=== PATIENT | female | born 1970 | race Caucasian/White ===

== ENCOUNTER 2016-08-18 20:30 | Emergency (ER) | payer SELFPAY ==
[~2016-08-18] VITALS: Ht 157.5 cm; Wt 65.2 kg
[~2016-08-18 20:30] MED LIST: PENVK500 PO
[2016-08-18 20:35] VITALS: BP 148/95; PULSE 98; RESP 20; TEMP 98.8
[2016-08-18 22:35] VITALS: BP 146/90; PULSE 85; RESP 18; O2SAT 97
--- NOTE | 2016-08-18 23:04 | PD ---
HPI Chief Complaint: Pain: Acute or Chronic Time Seen by Provider: 22:52 Travel History International Travel<30 days: No Contact w/Intl Traveler<30days: No Traveled to known affect area: No History of Present Illness HPI The patient is a 45-year-old female that complains of pain on her left back for 3 days. The pain is sharp. She states it is not under her breast, apparently she described it initially as being under her left breast. When she lifts her arm up or sits forward the pain hurts. She denies any trauma. She does have a history of cocaine abuse. She denies any fever or cough. She smokes almost a pack a day. PFSH Past Medical History Bipolar Disorder: Yes Anxiety: Yes Depression: Yes High Cholesterol: Yes Diminished Hearing: No Fibromyalgia: Yes GERD: No Genitourinary: No Hiatal Hernia: No Inguinal Hernia: Yes Kidney Stones: No Musculoskeletal: Yes (DJD) Psychiatric: Yes Respiratory: No Immunizations Current: No Renal Failure: No Schizophrenia: Yes (POSSIBLE ) Seizures: Yes (X1 IN 2001) Ulcer: No Tetanus Vaccination: < 5 Years Influenza Vaccination: No ?: Not Menopausal: Yes : 4 Para: 2 Miscarriage: 2 : 0 Past Surgical History Abdominal Surgery: Yes (LAPROSCOPY X2 FOR ENDOMETRIOSIS) Cardiac Surgery: No Genitourinary Surgery: No Gynecologic Surgery: Yes (ENDOMETRIOSIS X 3; PROLAPS UTERUS REPAIR) Hysterectomy: Yes Thoracic Surgery: No Other Surgery: Yes (BILAT INGUINAL HERNIA REPAIR 04) Social History Alcohol Use: Yes (occ) Tobacco Use: Yes (07/21 ppd) Substance Use: Yes (CRACK,METH, dilaudid) Allergies-Medications (Allergen,Severity, Reaction): Coded Allergies: No Known Allergies (Verified , 08/18/16) Reported Meds & Prescriptions Reported Meds & Active Scripts Active No Active Prescriptions or Reported Medications Review of Systems Except as stated in HPI: all other systems reviewed are Neg Physical Exam Narrative GENERAL: The patient is alert, oriented 3 and slight apparent distress with her back pain. Her vital signs show blood pressure 148/95 but are otherwise normal. The heart rate is 98. SKIN: Warm and dry. HEAD: Atraumatic. Normocephalic. EYES: Pupils equal and round. No scleral icterus. No injection or drainage. ENT: No nasal bleeding or discharge. Mucous membranes pink and moist. NECK: Trachea midline. No JVD. CARDIOVASCULAR: Regular rate and rhythm. No murmur appreciated. RESPIRATORY: No accessory muscle use. Clear to auscultation. Breath sounds equal bilaterally. The patient states I cannot reproduce pain by pressing on her back when I press slightly to the left of the thoracic spine at around T8 to T10 she jumps up but then states it tickled and made it hurt. When I pressed below and behind the left breast it does reproduce her pain somewhat. GASTROINTESTINAL: Abdomen soft, non-tender, nondistended. Hepatic and splenic margins not palpable. MUSCULOSKELETAL: No obvious deformities. No clubbing. No cyanosis. No edema. NEUROLOGICAL: Awake and alert. No obvious cranial nerve deficits. Motor grossly within normal limits. Normal speech. PSYCHIATRIC: Appropriate mood and affect; insight and judgment normal. Data Data Last Documented VS Vital Signs Date Time Temp Pulse Resp B/P Pulse Ox O2 Delivery O2 Flow Rate FiO2 08/18/16 22:35 85 18 146/90 97 Room Air 08/18/16 20:35 98.8 Orders Chest, Pa & Lat (08/18/16 22:59) Ketorolac Inj (Toradol Inj) (08/18/16 23:15) D-Dimer (08/18/16 23:47) Iv Access Insert/Monitor (08/19/16 00:34) Ecg Monitoring (08/19/16 00:34) Oximetry (08/19/16 00:34) Oxygen Administration (08/19/16 00:34) Ct Pulmonary Angiogram (08/19/16 00:34) Sodium Chloride 0.9% Flush (Ns Flush) (08/19/16 00:45) Complete Blood Count With Diff (08/19/16 00:35) Basic Metabolic Panel (Bmp) (08/19/16 00:35) Urinalysis - C+S If Indicated (08/19/16 00:35) Labs Laboratory Tests Test 08/18/16 23:25 D-Dimer Quantitative (PE/DVT) 1.04 MG/L FEU [facility] Medical Decision Making Medical Screen Exam Complete: Yes Emergency Medical Condition: Yes Medical Record Reviewed: Yes Interpretation(s) The chest x-ray shows no acute cardiopulmonary disease. The d-dimer is 1.04. Differential Diagnosis Latissimus dorsi insertion pain, fractured rib, pneumothoraxhighly unlikely, pleurisy, pulmonary emboluslow probability Narrative Course Patient appears to have pleuritic chest pain. It is in front and back and does not follow the course of muscles and appears to be inside of the ribs and musculature. The patient wants to rule out a pulmonary embolus and we will do a d-dimer first. The patient does apparently have low probability for pulmonary embolus. Unfortunately, the d-dimer is slightly elevated and we will have to do a CT pulmonary angiogram. The patient has business dealings later on today and cannot stay for this tonight, she will sign out AGAINST MEDICAL ADVICE and return later. Procedures EKG Prior to Arrival: No Diagnosis Primary Impression: Chest pain of uncertain etiology Additional Instructions: As we discussed, pulmonary embolus as possible and he will have to sign out AMA tonight. When you return, we will want to do a CT pulmonary angiogram. This should adequately rule out a pulmonary embolus. Scripts No Active Prescriptions or Reported Meds Disposition: 07 AGAINST MEDICAL ADVICE Condition: Stable Edy Garibay MD Aug 18, 2016 23:04
[2016-08-18] MEDS ORDERED: KETOROLAC TROMETHAMINE 60 MG/2 ML (IM) VIAL IM ONE (23:15)
--- NOTE | 2016-08-18 23:35 | RADHPO ---
EXAM DATE/TIME: 08/18/2016 23:14 [facility] COMPARISON: No previous studies available for comparison. INDICATIONS : Patient states left side chest pain. MEDICAL HISTORY : Hypercholesterolemia. SURGICAL HISTORY : None. ENCOUNTER: Initial ACUITY: 3 days PAIN SCORE: 9/10 LOCATION: Left chest FINDINGS: PA and lateral views of the chest demonstrate the lungs to be symmetrically aerated without evidence of mass, infiltrate or effusion. The cardiomediastinal contours are unremarkable. Osseous structure s are intact. CONCLUSION: No evidence of acute cardiopulmonary disease. Wilman Chin MD on August 18, 2016 at 23:32 Board Certified Radiologist. This report was verified electronically.
[2016-08-19 00:10] VITALS: BP 145/72; PULSE 83; RESP 17; O2SAT 98
[2016-08-19 00:18] VITALS: RESP 18
[2016-08-19] MEDS ORDERED: SODIUM CHLORIDE 0.9% FLUSH 5 ML FLUSH IVF PRN (00:45)
== END 2016-08-19 00:49 | disposition left against medical advice (07) ==
LOC: PHED 20:30
DX: R07.9 Chest pain, unspecified (principal); E78.00 Pure hypercholesterolemia, unspecified; M79.7 Fibromyalgia; F17.210 Nicotine dependence, cigarettes, uncomplicated; F14.10 Cocaine abuse, uncomplicated; F11.10 Opioid abuse, uncomplicated
CPT/HCPCS: 71020; 85379; 96372; 99283; J1885

== ENCOUNTER 2017-02-08 04:44 | Emergency (ER) | payer SELFPAY ==
[2017-02-08 04:48] VITALS: BP 144/103; PULSE 92; RESP 18; TEMP 98.4; O2SAT 98
[2017-02-08 05:24] VITALS: RESP 20
[2017-02-08 05:37] LABS: AUTOMATED NEUTROPHIL # 4.3 TH/MM3 (1.8-7.7); BASOPHIL # 0.1 TH/MM3 (0-0.2); BASOPHIL % 0.8 % (0.0-2.0); EOSINOPHIL # 0.2 TH/MM3 (0-0.4); EOSINOPHIL % 3.3 % (0.0-4.0); HEMATOCRIT 37.1 % (35.0-46.0); HEMO FLAGS DIFF FINAL; LYMPH % 25.3 % (9.0-44.0); LYMPHOCYTE # 1.8 TH/MM3 (1.0-4.8); MEAN CELL VOLUME 87.4 FL (80.0-100.0); MEAN CORPUSCULAR HEMOGLOBIN 29.3 PG (27.0-34.0); MEAN CORPUSCULAR HGB CONC 33.5 % (32.0-36.0); MONO % 9.7 % (0.0-8.0); NEUT % 60.9 % (16.0-70.0); PLATELET COUNT 290 TH/MM3 (150-450); RED BLOOD COUNT 4.25 MIL/MM3 (4.00-5.30); RED CELL DISTRIBUTION WIDTH 14.3 % (11.6-17.2)
[2017-02-08 05:53] LABS: APTT (PATIENT) 29.7 SEC (24.3-30.1)
--- NOTE | 2017-02-08 06:04 | PD ---
HPI Chief Complaint: Chest Pain Time Seen by Provider: 05:48 Travel History International Travel<30 days: No Contact w/Intl Traveler<30days: No Traveled to known affect area: No History of Present Illness HPI 46yo F with PMH of fibromyalgia, chronic pain presents to the ED with c/o chest pain for weeks. State it is left sided, intermittent and nonradiating. Denies any sob, n/v, abdominal pain, focal weakness or numbness. Pt also has right sided headache for 4 days. Has history of tension headaches. +Generalized weakness. Takes dilaudid at home. PFSH Past Medical History Bipolar Disorder: Yes Anxiety: Yes Depression: Yes High Cholesterol: Yes Diminished Hearing: No Fibromyalgia: Yes GERD: No Genitourinary: No Hiatal Hernia: No Inguinal Hernia: Yes Kidney Stones: No Musculoskeletal: Yes (DJD) Psychiatric: Yes Respiratory: No Immunizations Current: Yes Renal Failure: No Schizophrenia: Yes (POSSIBLE ) Seizures: Yes (X1 IN 2001) Ulcer: No Tetanus Vaccination: > 5 Years Influenza Vaccination: No ?: Not Menopausal: Yes : 4 Para: 2 Miscarriage: 2 : 0 Past Surgical History Surgical History: No Previous Surgery Abdominal Surgery: Yes (LAPROSCOPY X2 FOR ENDOMETRIOSIS) Cardiac Surgery: No Genitourinary Surgery: No Gynecologic Surgery: Yes (ENDOMETRIOSIS X 3; PROLAPS UTERUS REPAIR) Hysterectomy: Yes Thoracic Surgery: No Other Surgery: Yes (BILAT INGUINAL HERNIA REPAIR 04) Social History Alcohol Use: Yes (occ) Tobacco Use: Yes (1/3 ppd) Substance Use: Yes (CRACK,METH, dilaudid) Allergies-Medications (Allergen,Severity, Reaction): Coded Allergies: No Known Allergies (Verified , 02/08/17) Reported Meds & Prescriptions Reported Meds & Active Scripts Active No Active Prescriptions or Reported Medications Review of Systems Except as stated in HPI: all other systems reviewed are Neg Physical Exam Narrative GENERAL: 46yo F in mild distress. SKIN: Focused skin assessment warm/dry. HEAD: Atraumatic. Normocephalic. EYES: Pupils equal and round. No scleral icterus. No injection or drainage. ENT: No nasal bleeding or discharge. Mucous membranes pink and moist. NECK: Trachea midline. No JVD. CARDIOVASCULAR: Regular rate and rhythm. No murmur appreciated. RESPIRATORY: No accessory muscle use. Clear to auscultation. Breath sounds equal bilaterally. GASTROINTESTINAL: Abdomen soft, non-tender, nondistended. MUSCULOSKELETAL: No obvious deformities. No clubbing. No cyanosis. No edema. NEUROLOGICAL: Awake and alert. No obvious cranial nerve deficits. Motor grossly within normal limits. Normal speech. PSYCHIATRIC: Appropriate mood and affect; insight and judgment normal. Data Data Last Documented VS Vital Signs Date Time Temp Pulse Resp B/P Pulse Ox O2 Delivery O2 Flow Rate FiO2 02/08/17 05:26 Room Air 02/08/17 05:24 20 02/08/17 04:48 98.4 92 144/103 98 Orders Act Partial Throm Time (Ptt) (02/08/17 04:53) Prothrombin Time / Inr (Pt) (02/08/17 04:53) Electrocardiogram (02/08/17 05:07) Complete Blood Count With Diff (02/08/17 05:07) Basic Metabolic Panel (Bmp) (02/08/17 05:07) Ckmb (Isoenzyme) Profile (02/08/17 05:07) Troponin I (02/08/17 05:07) Chest, Single Ap (02/08/17 05:07) Iv Access Insert/Monitor (02/08/17 05:07) Ecg Monitoring (02/08/17 05:07) Oxygen Administration (02/08/17 05:07) Oximetry (02/08/17 05:07) Act Partial Throm Time (Ptt) (02/08/17 05:07) Ketorolac Inj (Toradol Inj) (02/08/17 06:45) Prochlorperazine Inj (Compazine Inj) (02/08/17 06:45) Labs Laboratory Tests Test 02/08/17 05:20 White Blood Count 7.0 TH/MM3 Red Blood Count 4.25 MIL/MM3 Hemoglobin 12.4 GM/DL Hematocrit 37.1 % Mean Corpuscular Volume 87.4 FL Mean Corpuscular Hemoglobin 29.3 PG Mean Corpuscular Hemoglobin 33.5 % Concent Red Cell Distribution Width 14.3 % Platelet Count 290 TH/MM3 Mean Platelet Volume 6.8 FL Neutrophils (%) (Auto) 60.9 % Lymphocytes (%) (Auto) 25.3 % Monocytes (%) (Auto) 9.7 % Eosinophils (%) (Auto) 3.3 % Basophils (%) (Auto) 0.8 % Neutrophils # (Auto) 4.3 TH/MM3 Lymphocytes # (Auto) 1.8 TH/MM3 Monocytes # (Auto) 0.7 TH/MM3 Eosinophils # (Auto) 0.2 TH/MM3 Basophils # (Auto) 0.1 TH/MM3 CBC Comment DIFF FINAL Differential Comment Activated Partial 29.7 SEC Thromboplast Time Sodium Level 137 MEQ/L Potassium Level 4.3 MEQ/L Chloride Level 104 MEQ/L Carbon Dioxide Level 29.1 MEQ/L Anion Gap 4 MEQ/L Blood Urea Nitrogen 18 MG/DL Creatinine 1.12 MG/DL Estimat Glomerular Filtration 52 ML/MIN Rate Random Glucose 107 MG/DL Calcium Level 9.2 MG/DL Total Creatine Kinase 88 U/L Troponin I LESS THAN 0.02 NG/ML MDM Medical Decision Making Medical Screen Exam Complete: Yes Emergency Medical Condition: Yes Interpretation(s) EKG: NSR 78bpm. Normal axis. No ST segment elevation or depression. Differential Diagnosis Atypical chest pain vs. ACS vs. chronic pain vs. migraine headache vs. tension headache Narrative Course 46yo F with fibromyalgia here with atypical chest pain and headache. No red flags for headache. Will do labs, EKG, CXR and give medication for headache and chest pain. Labs reviewed, no leukocytosis. Troponin negative. CXR showed no acute cardiopulmonary abnormality. Do not think chest pain is cardiac. Pt given toradol and compazine for headache with improvement of pain. Return precautions given. Diagnosis Primary Impression: Atypical chest pain Patient Instructions: General Instructions Departure Forms: Tests/Procedures Additional Instructions: Please follow up with [facility] as an outpatient. Return to the ED if symptoms worsen. Med/Other Pt SpecificInfo: Prescription(s) given Scripts Ibuprofen 400 Mg Sve194 Mg PO Q8H PRN (PAIN SCALE 1 TO 3) #20 TAB Ref 0 Prov:MoralesKatt 02/08/17 Disposition: 01 DISCHARGE HOME Condition: Stable Katt Morales DO Feb 08, 2017 06:04
--- NOTE | 2017-02-08 06:08 | RADRPT ---
EXAM DATE/TIME: 02/08/2017 05:31 [facility] COMPARISON: CHEST PA & LAT, August 18, 2016, 23:14. INDICATIONS : Chest pain and shortness of breath MEDICAL HISTORY : Seizures, Fibromyalgia SURGICAL HISTORY : Inguinal hernia repair. Prolapsed uterus repair ENCOUNTER: Initial ACUITY: 1 day PAIN SCORE: 8/10 LOCATION: Bilateral chest FINDINGS: Portable AP view of the chest demonstrates a normal-sized cardiac silhouette. No effusion, consolidat ion, or pneumothorax is visualized. The bones and soft tissues demonstrate no acute abnormality. Ther e is atelectasis at the right lung base. CONCLUSION: No acute cardiopulmonary abnormality is identified. Wilman Muller MD on February 08, 2017 at 6:07 Board Certified Radiologist. This report was verified electronically.
[2017-02-08 06:11] LABS: ANION GAP 4 MEQ/L (5-15); BICARBONATE 29.1 MEQ/L (21.0-32.0); BLOOD UREA NITROGEN 18 MG/DL (7-18); CHLORIDE 104 MEQ/L (98-107); GLOMERULAR FILTRATION RATE 52 ML/MIN (>89); POTASSIUM 4.3 MEQ/L (3.5-5.1); SODIUM (NA) 137 MEQ/L (136-145)
[2017-02-08 06:13] LABS: CREATINE KINASE 88 U/L (26-192)
[2017-02-08] MEDS ORDERED: KETOROLAC TROMETHAMINE 30 MG/ML (IVP) VIAL IV PUSH ONE (06:45)
[2017-02-08] MEDS ORDERED: PROCHLORPERAZINE INJ 10 MG/2 ML VIAL IV PUSH ONE (06:45)
[2017-02-08] MEDS ORDERED: IBUP400T20 PO (07:08)
--- NOTE | 2017-02-08 08:38 | EKG ---
Date Performed: 02/08/2017 Time Performed: 05:15:13 PTAGE: 46 years EKG: Sinus rhythm NORMAL ECG PREVIOUS TRACING : 08/08/2011 09.08 No significant change from previous tracing noted. DOCTOR: Bari Hansen Interpretating Date/Time 02/08/2017 08:37:46
== END 2017-02-08 07:30 | disposition home or self-care (01) ==
LOC: NEPC 04:44
DX: R07.89 Other chest pain (principal); M79.7 Fibromyalgia; R51 Headache; R53.1 Weakness; F31.9 Bipolar disorder, unspecified; E78.00 Pure hypercholesterolemia, unspecified; F20.9 Schizophrenia, unspecified; R56.9 Unspecified convulsions; F17.200 Nicotine dependence, unspecified, uncomplicated
CPT/HCPCS: 71010; 80048; 82550; 84484; 85025; 85730; 93005; 96374; 96375; 99285; J0780; J1885

== ENCOUNTER 2017-10-18 21:19 | Emergency (ER) | payer SELFPAY ==
[~2017-10-18] VITALS: Ht 157.5 cm; Wt 68.0 kg
[~2017-10-18 21:19] MED LIST changes: +IBUP1TAB5 PO; -PENVK500 PO
[2017-10-18 21:26] VITALS: BP 158/92; PULSE 83; RESP 20; TEMP 98.5; O2SAT 95
[2017-10-18] MEDS ORDERED: SODIUM CHLORIDE 0.9% FLUSH 10 ML FLUSH IVF PRN (21:45)
[2017-10-18 21:48] VITALS: RESP 16
--- NOTE | 2017-10-18 22:03 | PD ---
HPI Chief Complaint: Chest Pain Time Seen by Provider: 21:24 Travel History International Travel<30 days: No Contact w/Intl Traveler<30days: No Traveled to known affect area: No History of Present Illness HPI 46-year-old female presents emergency department via [facility] from home for evaluation of chest pain that has been ongoing for several weeks. States that she decided to come to the emergency department stay after a verbal argument with her boyfriend. States that her chest pain has been going on since about 6 PM today. Patient is a poor historian and is unable to tell me where her chest pain is located or the characteristics of her chest pain. She is rather anxious upon initial evaluation and interview. PFSH Past Medical History Bipolar Disorder: Yes Anxiety: Yes Depression: Yes High Cholesterol: Yes Diminished Hearing: No Fibromyalgia: Yes GERD: No Genitourinary: No Hiatal Hernia: No Inguinal Hernia: Yes Kidney Stones: No Musculoskeletal: Yes (DJD) Psychiatric: Yes Respiratory: No Immunizations Current: Yes Renal Failure: No Schizophrenia: Yes (POSSIBLE ) Seizures: Yes (X1 IN 2001) Ulcer: No ?: Not Menopausal: Yes : 4 Para: 2 Miscarriage: 2 : 0 Past Surgical History Abdominal Surgery: Yes (LAPROSCOPY X2 FOR ENDOMETRIOSIS) Cardiac Surgery: No Genitourinary Surgery: No Gynecologic Surgery: Yes (ENDOMETRIOSIS X 3; PROLAPS UTERUS REPAIR) Hysterectomy: Yes Thoracic Surgery: No Other Surgery: Yes (BILAT INGUINAL HERNIA REPAIR 04) Social History Alcohol Use: Yes (occ) Tobacco Use: Yes (1 ppd) Substance Use: Yes (CRACK,METH, dilaudid) Allergies-Medications (Allergen,Severity, Reaction): Coded Allergies: Penicillins (Verified Allergy, Intermediate, DIARHEA, 10/18/17) Reported Meds & Prescriptions Reported Meds & Active Scripts Active Ibuprofen 400 Mg Tab 400 Mg PO Q8H PRN Review of Systems Except as stated in HPI: all other systems reviewed are Neg Physical Exam Narrative GENERAL: Well-developed, well-nourished, extremely anxious, reluctant to answer any questions SKIN: Focused skin assessment warm/dry. HEAD: Atraumatic. Normocephalic. EYES: Pupils equal and round. No scleral icterus. No injection or drainage. ENT: No nasal bleeding or discharge. Mucous membranes pink and moist. NECK: Trachea midline. No JVD. No lymphadenopathy CARDIOVASCULAR: Regular rate and rhythm. No murmur appreciated. RESPIRATORY: No accessory muscle use. Clear to auscultation. Breath sounds equal bilaterally. GASTROINTESTINAL: Abdomen soft, non-tender, nondistended. Hepatic and splenic margins not palpable. No tenderness palpation of the chest wall MUSCULOSKELETAL: No obvious deformities. No clubbing. No cyanosis. No edema. Homans sign negative NEUROLOGICAL: Awake and alert. No obvious cranial nerve deficits. Motor grossly within normal limits. Normal speech. PSYCHIATRIC: Appropriate mood and affect, very anxious Data Data Last Documented VS Vital Signs Date Time Temp Pulse Resp B/P (MAP) Pulse Ox O2 Delivery O2 Flow Rate FiO2 10/18/17 21:48 16 10/18/17 21:48 98 Room Air 10/18/17 21:26 98.5 83 158/92 (114) Orders Orders Ckmb (Isoenzyme) Profile (10/18/17 21:32) Complete Blood Count With Diff (10/18/17 21:32) Comprehensive Metabolic Panel (10/18/17 21:32) Magnesium (Mg) (10/18/17 21:32) Prothrombin Time / Inr (Pt) (10/18/17 21:32) Act Partial Throm Time (Ptt) (10/18/17 21:32) Troponin I (10/18/17 21:32) Ecg Monitoring (10/18/17 21:32) Bilateral Bp Monitoring (10/18/17 21:32) Iv Access Insert/Monitor (10/18/17 21:32) Oximetry (10/18/17 21:32) Oxygen Administration (10/18/17 21:32) Chest, Pa & Lat (10/18/17 21:32) Sodium Chloride 0.9% Flush (Ns Flush) (10/18/17 21:45) Thyroid Stimulating Hormone (10/18/17 21:32) Urinalysis - C+S If Indicated (10/18/17 22:14) Drug Screen, Random Urine (10/18/17 22:14) Alcohol (Ethanol) (10/18/17 22:14) CKMB (10/18/17 21:40) CKMB% (10/18/17 21:40) Cath For Specimen (10/18/17 23:31) Ed Discharge Order (10/19/17 00:32) Electrocardiogram (10/18/17 21:30) Labs Laboratory Tests Test 10/18/17 21:40 10/18/17 23:55 White Blood Count 7.6 TH/MM3 Red Blood Count 5.16 MIL/MM3 Hemoglobin 14.3 GM/DL Hematocrit 43.4 % Mean Corpuscular Volume 84.1 FL Mean Corpuscular Hemoglobin 27.7 PG Mean Corpuscular Hemoglobin Concent 32.9 % Red Cell Distribution Width 15.7 % Platelet Count 328 TH/MM3 Mean Platelet Volume 7.5 FL Neutrophils (%) (Auto) 63.4 % Lymphocytes (%) (Auto) 26.7 % Monocytes (%) (Auto) 7.1 % Eosinophils (%) (Auto) 2.2 % Basophils (%) (Auto) 0.6 % Neutrophils # (Auto) 4.8 TH/MM3 Lymphocytes # (Auto) 2.0 TH/MM3 Monocytes # (Auto) 0.5 TH/MM3 Eosinophils # (Auto) 0.2 TH/MM3 Basophils # (Auto) 0.0 TH/MM3 CBC Comment DIFF FINAL Differential Comment Prothrombin Time 9.8 SEC Prothromb Time International Ratio 1.0 RATIO Activated Partial Thromboplast Time 29.0 SEC Blood Urea Nitrogen 22 MG/DL Creatinine 1.37 MG/DL Random Glucose 57 MG/DL Total Protein 8.8 GM/DL Albumin 4.0 GM/DL Calcium Level 9.5 MG/DL Magnesium Level 2.3 MG/DL Alkaline Phosphatase 74 U/L Aspartate Amino Transf (AST/SGOT) 48 U/L Alanine Aminotransferase (ALT/SGPT) 71 U/L Total Bilirubin 0.3 MG/DL Sodium Level 140 MEQ/L Potassium Level 3.9 MEQ/L Chloride Level 104 MEQ/L Carbon Dioxide Level 28.0 MEQ/L Anion Gap 8 MEQ/L Estimat Glomerular Filtration Rate 41 ML/MIN Total Creatine Kinase 101 U/L Creatine Kinase MB 4.2 NG/ML Troponin I LESS THAN 0.02 NG/ML Thyroid Stimulating Hormone 3rd Gen 3.930 uIU/ML Ethyl Alcohol Level LESS THAN 3 MG/DL Urine Color YELLOW Urine Turbidity CLEAR Urine pH 6.0 Urine Specific [place] 1.018 Urine Protein NEG mg/dL Urine Glucose (UA) NEG mg/dL Urine Ketones NEG mg/dL Urine Occult Blood NEG Urine Nitrite NEG Urine Bilirubin NEG Urine Urobilinogen LESS THAN 2.0 MG/DL Urine Leukocyte Esterase TRACE Urine RBC LESS THAN 1 /hpf Urine WBC 2 /hpf Urine Squamous Epithelial Cells 5 /hpf Microscopic Urinalysis Comment CULT NOT INDICATED Urine Opiates Screen POS Urine Barbiturates Screen NEG Urine Amphetamines Screen POS Urine Benzodiazepines Screen NEG Urine Cocaine Screen POS Urine Cannabinoids Screen NEG MDM Medical Decision Making Medical Screen Exam Complete: Yes Emergency Medical Condition: Yes Differential Diagnosis Atypical chest pain, ACS, angina, anxiety, pericarditis, endocarditis Narrative Course 46-year-old female presents emergency department for evaluation of chest pain. According to [facility] she was given 4 baby aspirin and 2 nitros with resolution of her chest pain. Pt admits to doing IV dilaudid today just prior to having an argument with her boyfriend. She denies have any any chest pain at this point. Vital signs blood pressure 158/92, heart rate 83, SaO2 98% on room air. Physical exam findings demonstrate a well-developed, well-nourished, very anxious 38-year-old female, uncooperative. After review the EMR, it appears that patient has had atypical chest pain previously. Her last episode was in January 2017 the patient had labs and was discharged home to follow-up as an outpatient. Past medical history significant for fibromyalgia and chronic pain, IV drug use , cocaine use, bipolar disorder, and problems with the law. UDS added to evaluate for other possible drug use. Please see Dr. Thomas's note for further information and dispo. Diagnosis Primary Impression: Atypical chest pain Admitting Information Admitting Physician Requests: Observation Condition: Stable Mae Weinstein Oct 18, 2017 22:03
--- NOTE | 2017-10-18 22:16 | RADRPT ---
EXAM DATE/TIME: 10/18/2017 21:49 [facility] COMPARISON: CHEST PA & LAT, August 18, 2016, 23:14. INDICATIONS : Chest pain. MEDICAL HISTORY : Seizures, Fibromyalgia. SURGICAL HISTORY : Inguinal hernia repair. Prolapsed uterus repair. ENCOUNTER: Initial ACUITY: 1 day PAIN SCORE: Non-responsive. LOCATION: Bilateral chest FINDINGS: PA and lateral views of the chest demonstrate the lungs to be symmetrically aerated without evidence of mass, infiltrate or effusion. Elevated right hemidiaphragm. Subsegmental basilar air space disease . CONCLUSION: 1. Elevated right hemidiaphragm with minimal subsegmental basilar opacity, probably atelectasis. No e ffusion or pneumothorax. Emanuel Tovar MD on October 18, 2017 at 22:13 Board Certified Radiologist. This report was verified electronically.
[2017-10-18 22:21] LABS: AUTOMATED NEUTROPHIL # 4.8 TH/MM3 (1.8-7.7); BASOPHIL % 0.6 % (0.0-2.0); EOSINOPHIL # 0.2 TH/MM3 (0-0.4); EOSINOPHIL % 2.2 % (0.0-4.0); HEMATOCRIT 43.4 % (35.0-46.0); HEMOGLOBIN 14.3 GM/DL (11.6-15.3); LYMPH % 26.7 % (9.0-44.0); MEAN CELL VOLUME 84.1 FL (80.0-100.0); MEAN CORPUSCULAR HEMOGLOBIN 27.7 PG (27.0-34.0); MEAN CORPUSCULAR HGB CONC 32.9 % (32.0-36.0); MEAN PLATELET VOLUME 7.5 FL (7.0-11.0); MONO % 7.1 % (0.0-8.0); MONOCYTE # 0.5 TH/MM3 (0-0.9); NEUT % 63.4 % (16.0-70.0); PLATELET COUNT 328 TH/MM3 (150-450); RED BLOOD COUNT 5.16 MIL/MM3 (4.00-5.30); RED CELL DISTRIBUTION WIDTH 15.7 % (11.6-17.2); WHITE BLOOD COUNT 7.6 TH/MM3 (4.0-11.0)
[2017-10-18 22:37] LABS: PROTHROMBIN TIME - PATIENT 9.8 SEC (9.8-11.6)
[2017-10-18 22:39] LABS: ALT (GPT) 71 U/L (10-53); AST (GOT) 48 U/L (15-37); BLOOD UREA NITROGEN 22 MG/DL (7-18); CALCIUM 9.5 MG/DL (8.5-10.1); CHLORIDE 104 MEQ/L (98-107); CREATININE 1.37 MG/DL (0.50-1.00); GLOMERULAR FILTRATION RATE 41 ML/MIN (>89); GLUCOSE,RANDOM 57 MG/DL (74-106); MAGNESIUM 2.3 MG/DL (1.5-2.5); SODIUM (NA) 140 MEQ/L (136-145)
[2017-10-18 22:50] LABS: ALKALINE PHOSPHATASE 74 U/L (45-117); TOTAL BILIRUBIN ADULT 0.3 MG/DL (0.2-1.0); TOTAL PROTEIN 8.8 GM/DL (6.4-8.2); TROPONIN I LESS THAN 0.02 NG/ML (0.02-0.05)
--- NOTE | 2017-10-19 00:03 | PD ---
Physical Exam Date Seen by Provider: Oct 18, 2017 Time Seen by Provider: 23:57 Narrative accepted in transfer of care ]GENERAL: Well-developed well-nourished female no acute distress no respiratory distress; GCS 15 SKIN: Warm and dry. HEAD: Normocephalic. EYES: No scleral icterus. No injection or drainage. NECK: Supple, trachea midline. No JVD or lymphadenopathy. CARDIOVASCULAR: Regular rate and rhythm without murmurs, gallops, or rubs. No murmur RESPIRATORY: Breath sounds equal bilaterally. No accessory muscle use. GASTROINTESTINAL: Abdomen soft, non-tender, nondistended. MUSCULOSKELETAL: No cyanosis, or edema. Radial and dorsalis pedis pulses 2+ to palpation BACK: Nontender without obvious deformity. No CVA tenderness. Data Data Last Documented VS Vital Signs Date Time Temp Pulse Resp B/P (MAP) Pulse Ox O2 Delivery O2 Flow Rate FiO2 10/18/17 21:48 16 10/18/17 21:48 98 Room Air 10/18/17 21:26 98.5 83 158/92 (114) Orders Orders Electrocardiogram (10/18/17 21:32) Ckmb (Isoenzyme) Profile (10/18/17 21:32) Complete Blood Count With Diff (10/18/17 21:32) Comprehensive Metabolic Panel (10/18/17 21:32) Magnesium (Mg) (10/18/17 21:32) Prothrombin Time / Inr (Pt) (10/18/17 21:32) Act Partial Throm Time (Ptt) (10/18/17 21:32) Troponin I (10/18/17 21:32) Ecg Monitoring (10/18/17 21:32) Bilateral Bp Monitoring (10/18/17 21:32) Iv Access Insert/Monitor (10/18/17 21:32) Oximetry (10/18/17 21:32) Oxygen Administration (10/18/17 21:32) Chest, Pa & Lat (10/18/17 21:32) Sodium Chloride 0.9% Flush (Ns Flush) (10/18/17 21:45) Thyroid Stimulating Hormone (10/18/17 21:32) Urinalysis - C+S If Indicated (10/18/17 22:14) Drug Screen, Random Urine (10/18/17 22:14) Alcohol (Ethanol) (10/18/17 22:14) CKMB (10/18/17 21:40) CKMB% (10/18/17 21:40) Cath For Specimen (10/18/17 23:31) Labs Laboratory Tests Test 10/18/17 21:40 10/18/17 23:55 White Blood Count 7.6 TH/MM3 Red Blood Count 5.16 MIL/MM3 Hemoglobin 14.3 GM/DL Hematocrit 43.4 % Mean Corpuscular Volume 84.1 FL Mean Corpuscular Hemoglobin 27.7 PG Mean Corpuscular Hemoglobin Concent 32.9 % Red Cell Distribution Width 15.7 % Platelet Count 328 TH/MM3 Mean Platelet Volume 7.5 FL Neutrophils (%) (Auto) 63.4 % Lymphocytes (%) (Auto) 26.7 % Monocytes (%) (Auto) 7.1 % Eosinophils (%) (Auto) 2.2 % Basophils (%) (Auto) 0.6 % Neutrophils # (Auto) 4.8 TH/MM3 Lymphocytes # (Auto) 2.0 TH/MM3 Monocytes # (Auto) 0.5 TH/MM3 Eosinophils # (Auto) 0.2 TH/MM3 Basophils # (Auto) 0.0 TH/MM3 CBC Comment DIFF FINAL Differential Comment Prothrombin Time 9.8 SEC Prothromb Time International Ratio 1.0 RATIO Activated Partial Thromboplast Time 29.0 SEC Blood Urea Nitrogen 22 MG/DL Creatinine 1.37 MG/DL Random Glucose 57 MG/DL Total Protein 8.8 GM/DL Albumin 4.0 GM/DL Calcium Level 9.5 MG/DL Magnesium Level 2.3 MG/DL Alkaline Phosphatase 74 U/L Aspartate Amino Transf (AST/SGOT) 48 U/L Alanine Aminotransferase (ALT/SGPT) 71 U/L Total Bilirubin 0.3 MG/DL Sodium Level 140 MEQ/L Potassium Level 3.9 MEQ/L Chloride Level 104 MEQ/L Carbon Dioxide Level 28.0 MEQ/L Anion Gap 8 MEQ/L Estimat Glomerular Filtration Rate 41 ML/MIN Total Creatine Kinase 101 U/L Creatine Kinase MB 4.2 NG/ML Troponin I LESS THAN 0.02 NG/ML Thyroid Stimulating Hormone 3rd Gen 3.930 uIU/ML Ethyl Alcohol Level LESS THAN 3 MG/DL Urine Color YELLOW Urine Turbidity CLEAR Urine pH 6.0 Urine Specific [place] 1.018 Urine Protein NEG mg/dL Urine Glucose (UA) NEG mg/dL Urine Ketones NEG mg/dL Urine Occult Blood NEG Urine Nitrite NEG Urine Bilirubin NEG Urine Urobilinogen LESS THAN 2.0 MG/DL Urine Leukocyte Esterase TRACE Urine RBC LESS THAN 1 /hpf Urine WBC 2 /hpf Urine Squamous Epithelial Cells 5 /hpf Microscopic Urinalysis Comment CULT NOT INDICATED Urine Opiates Screen POS Urine Barbiturates Screen NEG Urine Amphetamines Screen POS Urine Benzodiazepines Screen NEG Urine Cocaine Screen POS Urine Cannabinoids Screen NEG MDM Medical Record Reviewed: Yes Supervised Visit with [facility]INA: Yes Interpretation(s) Troponin I: Less than 0.02, elevated Last Impressions Chest X-Ray 10/18/172131 Signed Impressions: Service Date/Time: Wednesday, October 18, 2017 21:49 - CONCLUSION: 1. Elevated right hemidiaphragm with minimal subsegmental basilar opacity, probably atelectasis. No effusion or pneumothorax. Emanuel Tovar MD CBC & BMP Diagram 10/18/17 21:40 Total Protein 8.8 H, Albumin 4.0, Calcium Level 9.5, Magnesium Level 2.3, Alkaline Phosphatase 74, Aspartate Amino Transf (AST/SGOT) 48 H, Alanine Aminotransferase (ALT/SGPT) 71 H, Total Bilirubin 0.3 Vital Signs Date Time Temp Pulse Resp B/P (MAP) Pulse Ox O2 Delivery O2 Flow Rate FiO2 10/18/17 21:48 16 10/18/17 21:48 98 Room Air 10/18/17 21:26 98.5 83 20 158/92 (114) 95 tsh: 3.930, mildly elevated Serum alcohol: Less than 3, not elevated Urine drug screen: Opiates and amphetamines cocaine EKG normal sinus rhythm rate [address] elevation injury pattern or ectopy noted artifact is present at baseline Differential Diagnosis Chest pain atypical chest pain IV drug abuse sepsis PE ACS musculoskeletal pain Narrative Course 46-year-old female presents to the emergency department for complaint of chest pain after injecting Dilaudid and during an argument with her significant other. Patient did receive nitroglycerin and aspirin en route to the hospital. Patient has been seen numerous times at this facility for atypical chest pain and polysubstance abuse related complaints. As well as IV Dilaudid use patient has used cocaine in the past. Patient does not report any referred neck jaw back shoulder arm pain. No report of sweats diaphoresis or shortness of breath. Lungs clear to auscultation heart sounds without murmur rub or gallop peripheral pulses are 2+ to palpation mentation GCS is 15 no report of injury or fall. Specimens collected and sent for resulting EKG performed which reveals no acute injury pattern Labs remarkable for normal CBC with automated differential chemistries remarkable for renal insufficiency thyroid dysfunction troponin I is less than 0.02, not elevated and CK-MB percent is 4.1% not elevated Discussed patient's labs values with her and presentation for atypical chest pain chronic pain syndrome renal insufficiency thyroid dysfunction and IV drug abuse. Patient's drug screen is positive for amphetamines and cocaine as well as opiates therefore in view of patient's complaint of chest pain risk for coronary spasm is present and as patient has not been evaluated or followed by her primary care provider is unknown underlying medical history for dyslipidemia diabetes or hypertension. Also patient admits to tobacco use. Recommendation is observation admission for chest pain center protocol and then strongly recommend patient enter into a detox program. Patient states that she does not want to go through detox program does not want to stop using IV narcotics is aware of the risk of using street dilaudid for her pain management. Have discussed with patient the recommendation to go to [facility] to go through a detox program to get off of her narcotic dependency and then follow-up with a pain management doctor for chronic neck pain and back pain. Patient states she does not want to stop using narcotics she does not want to stop using opiates she does not want to stop using pain medication because it helps with her chronic pain syndrome. Patient denies any recent injury or fall or exacerbation of her chronic pain syndrome. Patient also states that when she is around her she uses more IV Dilaudid and which she is not around her but she wants to be with her . AMA: The risks of leaving against medical advice without further evaluation treatment were discussed with the patient. These risks include cardiac dysfunction, cardiac dysrhythmia, possible heart attack, possible stroke or . The patient indicated understanding of these risks and appeared to have the capacity to make this decision. Diagnosis Primary Impression: Atypical chest pain Additional Impressions: Renal insufficiency Thyroid dysfunction IV drug abuse Referrals: [facility] day Patient Instructions: General Instructions Additional Instruction: Discontinue IV drug abuse Follow-up with [facility] for detox program and resources Disposition: 07 AGAINST MEDICAL ADVICE Condition: Macrina Lee MD Oct 19, 2017 00:03
[2017-10-19 00:18] LABS: BILIRUBIN, URINE NEG (NEG); BLOOD, URINE NEG (NEG); GLUCOSE,URINE NEG (NEG); KETONE, URINE NEG (NEG); NITRITE,URINE NEG (NEG); SQUAMOUS EPITHELIAL CELL URINE 5 /hpf (0-5); URINE COLOR YELLOW (YELLW/STRAW); URINE LEUKOCYTE ESTERASE TRACE (NEG)
--- NOTE | 2017-10-19 17:27 | EKG ---
Date Performed: 10/18/2017 Time Performed: 21:30:26 PTAGE: 46 years EKG: Sinus rhythm Since previous tracing, no significant change noted NORMAL ECG PREVIOUS TRACING : 02/08/2017 05.15.13 DOCTOR: Arsalan Anderson Interpretating Date/Time 10/19/2017 17:25:36
== END 2017-10-19 01:21 | disposition left against medical advice (07) ==
LOC: NEPC 21:19
DX: R07.89 Other chest pain (principal); N28.9 Disorder of kidney and ureter, unspecified; E07.9 Disorder of thyroid, unspecified; F19.10 Other psychoactive substance abuse, uncomplicated; F17.200 Nicotine dependence, unspecified, uncomplicated; M79.7 Fibromyalgia
CPT/HCPCS: 71046; 80053; 80307; 81001; 82550; 82552; 83735; 84443; 84484; 85025; 85610; 85730; 93005